=== PATIENT | male | born 2000 | race African-American/Black ===

== ENCOUNTER 2019-11-19 23:16 | Emergency (ER) | payer OTHER ==
[2019-11-19 23:57] LABS: Absolute Lymphocytes (CBC) 1.4 K/uL (0.7-4.9); Basophils % 0.3 % (0-1.3); Hematocrit 44.7 % (39.6-49.0); Lymphocytes % 26.1 % (15.3-44.8); MPV 10.1 fL (7.6-11.3); RBC Red Blood Cell Count 5.05 M/uL (4.33-5.43)
[2019-11-20] MEDS ORDERED: VANCOMYCIN 1 GM/VIAL ONE (01:32)
[2019-11-20] MEDS ORDERED: NA CHLORIDE 0.9% 500 ML ONE (01:32)
[2019-11-20] MEDS ORDERED: PIPER/TAZO/NS 3.375gm 3.375 GM/100 ML BAG ONE (01:33)
[2019-11-20 01:34] LABS: Thyroid Stimulating Hormone 0.862 uIU/mL (0.360-3.740)
--- NOTE | 2019-11-20 02:23 | ER ---
Nurse's Notes [facility] Name: Mumtaz Huang Age: 19 yrs Sex: Male : 2000 Arrival Date: 11/19/2019 Time: 23:19 Bed 8 Private MD: Diagnosis: Ludwigs angina Presentation: 11/18 23:20 Chief complaint: EMS states: he is complaining of lump on his throat, fever and mg2 difficulty swallowing and breathing for 2 days. Temp - 100.2 5 days ago his cellmate was diagnosed for positive COVID. Coronavirus screen: Patient reports a measured and/or subjective temperature greater than 100.4F. Patient reports contact with known and/or suspected case of COVID-19. Ebola Screen: No symptoms or risks identified at this time. Risk Assessment: Do you want to hurt yourself or someone else? Patient reports no desire to harm self or others. Onset of symptoms was November 18, 2019. 23:20 Method Of Arrival: EMS: [place] [id number] 23:20 Acuity: CH[place]QU[place] 3 mg2 23:53 Initial Sepsis Screen: Does the patient meet any 2 criteria? No. Patient's initial mg2 sepsis screen is negative. Does the patient have a suspected source of infection? No. Patient's initial sepsis screen is negative. Triage Assessment: 23:55 General: Appears in no apparent distress. comfortable. Respiratory: Onset: The mg2 symptoms/episode began/occurred gradually, the patient has mild shortness of breath. Historical: - Allergies: 11/19 00:44 No Known Allergies; mg2 - Home Meds: 00:44 None [Active]; mg2 - PMHx: 11/18 23:24 Bronchitis; mg2 - PSHx: 11/19 00:44 Tonsillectomy; mg2 - Immunization history:: Flu vaccine status is unknown. - Social history:: Smoking status: Patient denies any tobacco usage or history of. Patient/guardian denies using alcohol, street drugs, IV drugs. Screenin/17 23:54 Abuse screen: Denies threats or abuse. Denies injuries from another. Nutritional mg2 screening: No deficits noted. Tuberculosis screening: No symptoms or risk factors identified. Fall Risk IV access (20 points). Assessment: 23:54 General: Appears in no apparent distress. comfortable, Behavior is calm, cooperative. mg2 Pain: Complains of pain in throat. Neuro: Level of Consciousness is awake, alert, obeys commands, Oriented to person, place, time, situation. Cardiovascular: Capillary refill < 3 seconds Patient's skin is warm and dry. Cardiovascular: Rhythm is regular. Respiratory: Airway is patent Respiratory effort is even, unlabored, Respiratory pattern is regular, symmetrical, Breath sounds are clear. GI: No signs and/or symptoms were reported involving the gastrointestinal system. : No signs and/or symptoms were reported regarding the genitourinary system. EENT: Reports difficulty swallowing. EENT: Throat is reddened. Derm: Skin is intact, is healthy with good turgor, Skin is pink, warm \T\ dry. normal. Musculoskeletal: Circulation, motion, and sensation intact. Capillary refill < 3 seconds. 11/19 00:38 Reassessment: patient claims that he has never had a fever today or days prior. mg2 02:00 Reassessment: patient informed about the plan to transfer the patient to [facility].mg2 02:16 Reassessment: patient informed that [facility] has no available bed and we are mg2 working on transferring him to [facility]. patient agreed. 03:19 Reassessment: Patient appears in no apparent distress at this time. Patient and/or mg2 family updated on plan of care and expected duration. Pain level reassessed. Patient is alert, oriented x 3, equal unlabored respirations, skin warm/dry/pink. 03:23 Reassessment: report given to AIDA [facility] De [facility] of [facility] ED. mg2 04:19 Reassessment: Patient appears in no apparent distress at this time. Patient and/or mg2 family updated on plan of care and expected duration. Pain level reassessed. Patient is alert, oriented x 3, equal unlabored respirations, skin warm/dry/pink. 04:40 Reassessment: report given to [facility]. patient in good condition, IV intact. mg2 08:44 Reassessment: [facility] 2004. Vital Signs: 11/18 23:53 BP 140 / 82; Pulse 81; Resp 18; Temp 98.8; Pulse Ox 100% on R/A; Weight 68.04 kg; mg2 Height 5 ft. 9 in. (175.26 cm); 11/19 00:45 Pulse 85; Resp 18; Pulse Ox 100% on R/A; mg2 00:50 BP 138 / 72; mg2 01:59 BP 126 / 76; Pulse 76; Resp 17; Pulse Ox 100% on R/A; mg2 03:17 BP 124 / 67; Pulse 80; Resp 18; Temp 98.6; Pulse Ox 100% on R/A; mg2 04:19 BP 134 / 65; Pulse 75; Resp 18; Temp 98.6; Pulse Ox 100% on R/A; mg2 11/18 23:53 Body Mass Index 22.15 (68.04 kg, 175.26 cm) mg2 ED Course: 11/18 23:19 Patient arrived in ED. ds1 23:19 Cameron [place], RN is Primary Nurse. mg2 23:23 Triage completed. mg2 23:23 Arm band placed on. mg2 23:25 Shea Graves FNP-C is PHCP. kb 23:25 Ramesh Israel MD is Attending Physician. kb 23:54 No provider procedures requiring assistance completed. Inserted saline lock: 20 gauge mg2 in left antecubital area, using aseptic technique. Blood collected. 23:55 Patient has correct armband on for positive identification. mg2 11/19 00:23 Chest Single View XRAY In Process Unspecified. EDMS 00:47 CT Soft Tissue Neck W/contr In Process Unspecified. EDMS 04:20 Patient transferred, IV remains in place. mg2 Administered Medications: 01:39 Drug: Zosyn 3.375 grams Route: IVPB; Infused Over: 60 mins; Site: left antecubital; mg2 04:23 Follow up: Response: No adverse reaction; IV Status: Completed infusion mg2 02:15 Drug: vancoMYCIN 1 grams Route: IVPB; Infused Over: 2 hrs; Site: left antecubital; mg2 04:22 Follow up: Response: No adverse reaction; IV Status: Completed infusion mg2 Outcome: 02:22 ER care complete, transfer ordered by . tw4 04:43 Transferred by ground EMS to [facility], Transfer form completed. mg2 04:43 Condition: stable 04:43 Instructed on the need for transfer, Demonstrated understanding of instructions. 04:57 Patient left the ED. mg2 Addendum: 11/21/2019 16:25 Addendum: Other COVID-19 swab results faxed to Mrs. Sanderson at [facility]. d m5 Signatures: Dispatcher [employer] EDMS StarShea, APPOINTMENT SCHEDULER-C APPOINTMENT SCHEDULER-Ckb Nicolasa Cardoza, RN RN Jeannette Farrell ds1 Marsha Ball RN RN ss Ramesh Israel MD MD tw4 Cameron Grove RN RN mg2 Corrections: (The following items were deleted from the chart) 11/18 23:54 23:20 Chief complaint: EMS states: he is complaining of lump on his throat, fever and mg2 difficulty swallowing and breathing for 2 days. Temp - 100.2 5 days ago his cellmate was diagnosed for positive COVID. mg2
--- NOTE | 2019-11-20 02:23 | EDPHYS ---
Physician Documentation [facility] Name: Mumtaz Huang Age: 19 yrs Sex: Male : 2000 Arrival Date: 11/19/2019 Time: 23:19 Bed 8 Private MD: ED Physician Ramesh Israel HPI: 11/19 00:03 This 19 yrs old Black Male presents to ER via EMS with complaints of Fever, Shortness kb Of Breath. 00:03 The patient or guardian complains of pain, swelling, tenderness. The symptoms are kb located diffusely. Onset: The symptoms/episode began/occurred 3 day(s) ago. Context: The neck injury/problem resulted from from unknown cause. Associated signs and symptoms: Pertinent positives: sore throat, FB sensation and shortness of breath at times, Pertinent negatives: chills, constipation, fever, headache, bladder incontinence, bowel incontinence, nausea, numbness, tingling, vomiting, weakness, The patient denies any alcohol use. The patient is not apparently intoxicated. No neurological symptoms were experienced by the patient prior to arrival in the emergency department. The pain does not radiate. Modifying factors: The symptoms are alleviated by nothing. the symptoms are aggravated by nothing. Severity of symptoms: At their worst the symptoms were moderate, in the emergency department the symptoms are unchanged. The patient has not experienced similar symptoms in the past. The patient has not recently seen a physician. 00:04 Pt reports neck swelling and tenderness for 3 days. Denies fever. Reports he sometimes kb has sore throat, a FB sensation and/or shortness of breath. . Historical: - Allergies: 00:44 No Known Allergies; mg2 - Home Meds: 00:44 None [Active]; mg2 - PMHx: 11/18 23:24 Bronchitis; mg2 - PSHx: 11/19 00:44 Tonsillectomy; mg2 - Immunization history:: Flu vaccine status is unknown. - Social history:: Smoking status: Patient denies any tobacco usage or history of. Patient/guardian denies using alcohol, street drugs, IV drugs. ROS: 00:00 Constitutional: Negative for fever, chills, and weight loss, Cardiovascular: Negative kb for chest pain, palpitations, and edema, Abdomen/GI: Negative for abdominal pain, nausea, vomiting, diarrhea, and constipation, Back: Negative for injury and pain, MS/Extremity: Negative for injury and deformity, Skin: Negative for injury, rash, and discoloration, Neuro: Negative for headache, weakness, numbness, tingling, and seizure. 00:00 ENT: Positive for sore throat. 00:00 Neck: Positive for swelling, tenderness. 00:00 Respiratory: Positive for shortness of breath, Negative for cough, dyspnea on exertion, hemoptysis, orthopnea, pleurisy, sputum production, wheezing. Exam: 00:01 Constitutional: This is a well developed, well nourished patient who is awake, alert, kb and in no acute distress. Head/Face: Normocephalic, atraumatic. ENT: Nares patent. No nasal discharge, no septal abnormalities noted. Tympanic membranes are normal and external auditory canals are clear. Oropharynx with no redness, swelling, or masses, exudates, or evidence of obstruction, uvula midline. Mucous membranes moist. Chest/axilla: Normal chest wall appearance and motion. Nontender with no deformity. No lesions are appreciated. Cardiovascular: Regular rate and rhythm with a normal S1 and S2. No gallops, murmurs, or rubs. Normal PMI, no JVD. No pulse deficits. Respiratory: Lungs have equal breath sounds bilaterally, clear to auscultation and percussion. No rales, rhonchi or wheezes noted. No increased work of breathing, no retractions or nasal flaring. Abdomen/GI: Soft, non-tender, with normal bowel sounds. No distension or tympany. No guarding or rebound. No evidence of tenderness throughout. Skin: Warm, dry with normal turgor. Normal color with no rashes, no lesions, and no evidence of cellulitis. MS/ Extremity: Pulses equal, no cyanosis. Neurovascular intact. Full, normal range of motion. Neuro: Awake and alert, GCS 15, oriented to person, place, time, and situation. Cranial nerves II-XII grossly intact. Motor strength 5/5 in all extremities. Sensory grossly intact. Cerebellar exam normal. Normal gait. 00:01 Neck: External neck: swelling, that is moderate, of the neck, C-spine: appears grossly normal, Thyroid: appears normal, Trachea: is midline with no obvious abnormalities, ROM/movement: is normal, Lymph nodes: lymphadenopathy is appreciated. Vital Signs: 05/17 23:53 BP 140 / 82; Pulse 81; Resp 18; Temp 98.8; Pulse Ox 100% on R/A; Weight 68.04 kg; mg2 Height 5 ft. 9 in. (175.26 cm); 11/19 00:45 Pulse 85; Resp 18; Pulse Ox 100% on R/A; mg2 00:50 BP 138 / 72; mg2 01:59 BP 126 / 76; Pulse 76; Resp 17; Pulse Ox 100% on R/A; mg2 03:17 BP 124 / 67; Pulse 80; Resp 18; Temp 98.6; Pulse Ox 100% on R/A; mg2 04:19 BP 134 / 65; Pulse 75; Resp 18; Temp 98.6; Pulse Ox 100% on R/A; mg2 11/18 23:53 Body Mass Index 22.15 (68.04 kg, 175.26 cm) mg2 MDM: 11/18 23:25 Patient medically screened. kb 23:44 Data reviewed: vital signs, nurses notes. Data interpreted: Pulse oximetry: on room air kb is 100 %. Interpretation: normal. 11/19 00:30 Transition of care: After a detail discussion of the patient's case, care is kb transferred to Ramesh Israel MD. 02:20 Differential diagnosis: viral Infection, bacterial infection, pneumonia. Counseling: I tw4 had a detailed discussion with the patient and/or guardian regarding: the historical points, exam findings, and any diagnostic results supporting the discharge/admit diagnosis, lab results, radiology results. 03:02 ED course: Pt's CT scan revealed Sheldon angina with abscess 2.2 cm at the floor of the tw4 mouth. Pt has swelling of the aryepiglottic folds and glossoepiglottic fold.. 11/18 23:26 Order name: Flu kb 11/18 23:26 Order name: Strep; Complete Time: 00:29 kb 11/18 23:26 Order name: COVID-19 kb 11/18 23:26 Order name: Influenza Screen (A ; Complete Time: 01:22 EDMS 11/18 23:44 Order name: CBC with Diff; Complete Time: 00:05 kb 11/18 23:44 Order name: Basic Metabolic Panel kb 11/18 23:26 Order name: Chest Single View XRAY kb 11/18 23:44 Order name: Evans Screen Profile; Complete Time: 00:24 kb 11/18 23:44 Order name: CT Soft Tissue Neck W/contr kb 11/19 00:27 Order name: Throat Culture EDPR 11/19 00:56 Order name: Thyroid Stimulating Hormone EDPR 11/18 23:44 Order name: IV Start; Complete Time: 23:48 kb Administered Medications: 01:39 Drug: Zosyn 3.375 grams Route: IVPB; Infused Over: 60 mins; Site: left antecubital; mg2 04:23 Follow up: Response: No adverse reaction; IV Status: Completed infusion mg2 02:15 Drug: vancoMYCIN 1 grams Route: IVPB; Infused Over: 2 hrs; Site: left antecubital; mg2 04:22 Follow up: Response: No adverse reaction; IV Status: Completed infusion mg2 Disposition: 06:43 Co-signature as Attending Physician, Ramesh Israel MD I agree with the assessment and tw4 plan of care. Disposition: 11/20/19 02:22 Transfer ordered to [facility]. Diagnosis is Ludwigs angina. - Reason for transfer: Higher level of care. - Accepting physician is Dr Duarte GLOVER. - Condition is Fair. - Problem is new. - Symptoms have improved. Signatures: Dispatcher [employer] [facility] Shea Graves, ADJUNCT BUSINESS INSTRUCTOR-C ADJUNCT BUSINESS INSTRUCTOR-Ckb Ramesh Israel MD MD tw4 Cameron Grove RN RN mg2 Corrections: (The following items were deleted from the chart) 00:56 00:53 THYROID STIMULAT HORMONE+C.LAB.BRZ ordered. [facility] 03:02 02:22 11/20/2019 02:22 Transfer ordered to [facility]. tw4 Diagnosis is Ludwigs angina. Reason for transfer: Higher level of care. Accepting physician is Dr GLOVER. Condition is Fair. Problem is new. Symptoms have improved. tw4 04:57 03:02 11/20/2019 02:22 Transfer ordered to [facility]. Diagnosis is mg2 Ludwigs angina. Reason for transfer: Higher level of care. Accepting physician is Dr Duarte GLOVER. Condition is Fair. Problem is new. Symptoms have improved. tw4
[2019-11-20 05:03] VITALS: BP 140/82; TEMP 98.8; O2SAT 100
--- NOTE | 2019-11-20 07:42 | RAD REPORT ---
EXAM DESCRIPTION: RAD - Chest Single View - 11/20/2019 12:23 am CLINICAL HISTORY: Cough;Congestion TECHNIQUE: AP portable chest image was obtained 11/20/2019 12:23 am . FINDINGS: No peripheral mass or consolidations seen. Slightly spiculated appearance to the parenchym a right suprahilar region is probably summation of parenchyma in the affects of overlying posterior f ifth rib and anterior second rib. This can be monitored on subsequent imaging. No suspicion for mediastinal or hilar adenopathy. Heart and vasculature are normal. No measurable pl eural effusion and no pneumothorax. No acute bony abnormality seen. No acute aortic findings suspecte d. IMPRESSION: An acute lung parenchymal process is not suspected. Slightly spiculated appearance to the parenchyma right suprahilar region believed to be summation art ifact. However, given the neck findings and patient's COVID-19 exposure history, follow-up chest film could be obtained.
--- NOTE | 2019-11-20 11:06 | RAD REPORT ---
EXAM DESCRIPTION: CT - Soft Tissue Neck W/Contr - 11/20/2019 4:39 am CLINICAL HISTORY: The patient is 19 years old and is Male; neck swelling/pain TECHNIQUE: Axial computed tomography images of the neck with intravenous contrast. Sagittal and co javier reformatted images were created and reviewed. This CT exam was performed using one or more of the following dose reduction techniques: automated exposure control, adjustment of the mA and/or k V according to patient size, and/or use of iterative reconstruction technique. DLP: 252 mGy*cm COMPARISON: None. FINDINGS: ORAL CAVITY: Rim-enhancing fluid collection in the right floor of the mouth measuring 2 .2 x 1.7 x 1 cm (AP by TR by CC). OROPHARYNX: Unremarkable. No significant tonsillar enlargement. No peritonsillar abscess. HYPOPHARYNX: Unremarkable. LARYNX: Mild thickening of the epiglottis and right epiglottic fold. Preepiglottic fat is preserve d. TRACHEA: Unremarkable. RETROPHARYNGEAL SPACE: Unremarkable. SUBMANDIBULAR/PAROTID GLANDS: Diffuse left submandibular gland submental swelling, right greater t felton left. THYROID: Unremarkable. No enlarged or calcified nodules. BONES/JOINTS: No acute fracture. SOFT TISSUES: Unremarkable. VASCULATURE: No acute findings. LYMPH NODES: Scattered cervical lymphadenopathy with left level 1A lymph node measuring 1.6 cm. mi ldly prominent right-sided level 2B and 3 lymph nodes also noted. SINUSES: Paranasal sinuses are clear. Mastoid air cells are well pneumatized. LUNG APICES: Unremarkable as visualized. IMPRESSION: 1. 2.2 cm rim-enhancing fluid collection in the right floor of the mouth concerning for abscess (Michelle dwig angina). 2. Mild thickening of the glossoepiglottic fold and right aryepiglottic fold with effacement of the right vallecula. 3. Associated bilateral submandibular and submental soft tissue swelling, right greater than left. 4. Multistation right cervical lymphadenopathy, likely reactive. Electronically signed by: Humberto Sunshine DO 11/20/2019 1:11 AM CDT Due to temporary technical issues with the PACS/Fluency reporting system, reports are being signed by the in house radiologist as a courtesy to ensure prompt reporting. The interpreting radiologist is f ully responsible for the content of the report.
== END 2019-11-20 04:57 | disposition short-term general hospital (02) ==
LOC: ER 23:16
DX: K12.2 Cellulitis and abscess of mouth (principal); Z20.828 Contact with and (suspected) exposure to other viral communicable diseases; Y92.149 Unspecified place in prison as the place of occurrence of the external cause
CPT/HCPCS: 96365; 87070; 85025; 80048; 36415; 86308; 87081; 84443; 87804 ×2; 70491; 71045; 99285; 96366; U0001; Q9967; J2543; J7040